=== PATIENT | female | born 1940 | race Caucasian/White ===

== ENCOUNTER 2016-08-19 05:32 | Outpatient (CLI) | payer MEDICARE, MEDICAID ==
[~2016-08-19] VITALS: Ht 157.5 cm; Wt 73.0 kg
[~2016-08-19 05:32] MED LIST: ASCO500T20 PO; CALC-694 PO; CPR500T PO; ESTR0.5T PO; GEMF600T3 PO; METR500T PO; OMEG-35 PO; ONDN4T PO; PARO40TA2 PO; SIMV40TA4 PO
[2016-08-19] MEDS ORDERED: LISI10TA2 PO (12:18)
[2016-08-19] MEDS ORDERED: HYDR25TA4 PO (12:18)
[2016-08-19] MEDS ORDERED: LORA10TA7 PO (12:19)
== END 2016-08-19 12:46 ==
LOC: PREOP 05:32
PROVIDERS: ATTEND Urology
DX: Z01.818 Encounter for other preprocedural examination (principal); N39.46 Mixed incontinence; N32.81 Overactive bladder; N36.42 Intrinsic sphincter deficiency (ISD)

== ENCOUNTER → 2016-09-05 | Outpatient (CLI) | payer MEDICARE, MEDICAID ==
[~2016-09-05] MED LIST changes: +HYDR25TA4 PO; +LISI10TA2 PO; +LORA10TA7 PO; +NITR-65 PO; +PHEN-640 PO
== END ==
LOC: PREOP 05:33
PROVIDERS: ATTEND Urology
DX: Z01.818 Encounter for other preprocedural examination (principal); N39.46 Mixed incontinence; N32.81 Overactive bladder; N36.42 Intrinsic sphincter deficiency (ISD)

== ENCOUNTER 2016-09-10 05:58 | Day surgery (SDC) | payer MEDICARE, MEDICAID ==
[~2016-09-10] VITALS: Ht 157.5 cm; Wt 73.0 kg
[~2016-09-10 05:58] MED LIST changes: -NITR-65 PO; -PHEN-640 PO
[2016-09-10] MEDS ORDERED: cefTRIAXone 1 GM (ROCEPHIN) VIAL ONE (06:17)
[2016-09-10] MEDS ORDERED: NS (IVPB) 50 ML ONE (06:18)
[2016-09-10 06:36] VITALS: BP 138/75
[2016-09-10] MEDS ORDERED: proPOfol 200 MG/20 ML (DIPRIVAN) VIAL IV ONE (06:52)
[2016-09-10] MEDS ORDERED: fentaNYL INJECTION 100 MCG/2 ML AMP ONE (06:52)
[2016-09-10] MEDS ORDERED: LACTATED RINGERS 1,000 ML IV PRN (06:56)
[2016-09-10] MEDS ORDERED: cefTRIAXone 1 GM/NS 50 ML IVPB IV ONE ×2 (07:15)
--- NOTE | 2016-09-10 07:15 | Progress Note-Pre Operative ---
Pre-Operative Progress Note H&P Reviewed The H&P was reviewed, patient examined and no changes noted. Date H&P Reviewed: September 10, 2016 Time H&P Reviewed: 07:14 Pre-Operative Diagnosis: MIXED INCONTINENCE, OAB AND ISD AUDREY BEGUM MD September 10, 2016 7:15 am
--- NOTE | 2016-09-10 07:16 | Progress Note-Post Operative ---
Post-Operative Progess Note Surgeon (s)/Chicken Cleaner (s) Surgeon AUDREY BEGUM MD Chicken Cleaner: N/A Pre-Operative Diagnosis MIXED INCONTINENCE, OAB AND ISD Post-Operative Diagnosis SAME Post-Op Procedure Note Date of Procedure: September 10, 2016 Name of Procedure Performed: MACROPLASTIQUE IMPLANT Description of the Procedure: PER DICTATION Findings of the Procedure SAME Anesthesia Type GENERAL Estimated blood loss (mL): NEGLIGIBLE Specimen(s) collected/removed NONE AUDREY BEGUM MD September 10, 2016 7:16 am
--- NOTE | 2016-09-10 07:18 | Discharge Inst-Urology ---
Discharge Inst-Urology Discharge Medications New, Converted, or Re-newed RX: RX on Chart Patient Instructions/Follow Up Plan Please make appointment to been seen in office in 4weeks. Increase oral fluids for 48 hours and then as needed. Diet and Activity as tolerated. If questions or concerns contact your physician Or seek help at emergency department. AUDREY BEGUM MD September 10, 2016 7:18 am
[2016-09-10] MEDS ORDERED: ONDANSETRON 4 MG/2 ML (SDV) Z0FRAN ONE (07:42)
[2016-09-10] MEDS ORDERED: SEVOFLURANE (ULTANE) 15 ML INHAL SOLN ONE (07:42)
[2016-09-10] MEDS ORDERED: LACTATED RINGERS 500 ML IV ONE (07:42)
[2016-09-10] MEDS ORDERED: ONDANSETRON 4 MG/2 ML (SDV) Z0FRAN IVP PRN (08:00)
[2016-09-10] MEDS ORDERED: morphine INJ 10 MG/ML 1ML (SYR OR VIAL) IVP PRN (08:00)
[2016-09-10 08:35] VITALS: BP 121/65
[2016-09-10] MEDS ORDERED: NITR-65 PO (08:41)
[2016-09-10] MEDS ORDERED: PHEN-640 PO (08:41)
--- NOTE | 2016-09-10 09:00 | OPERATIVE REPORT ---
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 OPERATION PERFORMED: Macroplastique implant. SURGEON: Ej Proctor MD ANESTHESIA: General. COMPLICATIONS: None. PROCEDURE: Under satisfactory general anesthesia, the patient in lithotomy position, genitalia were prepped and draped in the usual sterile fashion. Hysteroscope was introduced in the bladder and the Macroplastique implant was injected using the described technique and full syringe at the 6 o'clock position and a half of a syringe at each 2 and 10 o'clock positions over the mid urethra. There was excellent coaptation of the mid urethra and a negative manual Valsalva maneuver. I reinserted the cystoscope and emptied the bladder. There was no bleeding. The patient tolerated the procedure and anesthesia well and was sent to recovery room in stable condition. Job ID: [id number] DocumentID: [id number] Dictated Date: 09/10/2016 07:44:27 Camera Maker Date: 09/10/2016 09:00:37 Dictated By: EJ PROCTOR MD [facility]
[2016-09-10 09:05] VITALS: BP 141/71
[2016-09-10 09:35] VITALS: BP 123/72
== END 2016-09-10 09:35 | disposition home or self-care (01) ==
LOC: SDC 05:58
PROVIDERS: ATTEND Urology
DX: N39.46 Mixed incontinence (principal); N32.81 Overactive bladder; E78.5 Hyperlipidemia, unspecified; F32.9 Major depressive disorder, single episode, unspecified; I10 Essential (primary) hypertension; Z79.899 Other long term (current) drug therapy
CPT/HCPCS: 87081

== ENCOUNTER 2019-11-14 05:39 | Outpatient (RCR) | payer MEDICARE, MEDICAID ==
[~2019-11-14] VITALS: Ht 160 cm; Wt 76.4 kg
[~2019-11-14 05:39] MED LIST changes: +NITR-65 PO; +PHEN-640 PO
[2019-11-14] MEDS ORDERED: MV-M1TAB57 PO (11:27)
[2019-11-14] MEDS ORDERED: OMEG100032 PO (11:27)
[2019-11-14] MEDS ORDERED: OXYB10TA29 PO (11:27)
[2019-11-14] MEDS ORDERED: EMPA10TA PO (11:27)
[2019-11-14] MEDS ORDERED: AMLO5TAB9 PO (11:27)
[2019-11-14] MEDS ORDERED: PARO40TA3 PO (11:27)
[2019-11-14] MEDS ORDERED: CALC-902 PO (11:27)
[2019-11-14] MEDS ORDERED: DONE5TAB30 PO (11:27)
[2019-11-14] MEDS ORDERED: PSYL0.5244 PO (11:27)
[2019-11-14] MEDS ORDERED: SIMV40TA25 PO (11:27)
[2019-11-14] MEDS ORDERED: GEMF600T8 PO (11:27)
[2019-11-14] MEDS ORDERED: ASCO500T7 PO (11:27)
[2019-11-14] MEDS ORDERED: CHOL10002 PO (11:27)
[2019-11-14] MEDS ORDERED: VITA200C60 PO (11:27)
== END 2019-11-14 11:28 | disposition home or self-care (01) ==
LOC: PREOP 05:39
PROVIDERS: ATTEND Urology
DX: Z01.812 Encounter for preprocedural laboratory examination (principal); Z20.828 Contact with and (suspected) exposure to other viral communicable diseases
CPT/HCPCS: 87635

== ENCOUNTER 2019-11-16 06:30 | Day surgery (SDC) | payer MEDICARE, MEDICAID ==
[2019-11-16] VITALS (10 sets, daily range): BP systolic 112–166; BP diastolic 69–91
[~2019-11-16] VITALS: Ht 160 cm; Wt 76.4 kg
[~2019-11-16 06:30] MED LIST changes: +AMLO5TAB9 PO; +ASCO500T7 PO; +CALC-902 PO; +CHOL10002 PO; +DONE5TAB30 PO; +EMPA10TA PO; +GEMF600T8 PO; +MV-M1TAB57 PO; +OMEG100032 PO; +OXYB10TA29 PO; +PARO40TA3 PO; +PSYL0.5244 PO; +SIMV40TA25 PO; +VITA200C60 PO
--- OUTSIDE RECORDS SUMMARY | 2019-11-16 06:34 | XMS REPORT ---
Author Author Lashell GARCIA Organization [facility] Address Unknown Care Team Providers Care Manager Of Information Name Role Phone JOSE NOHEMI Unavailable PROBLEMS Type Condition ICD9-CM Code [id number] Code Onset Dates Condition S tatus SNOMED Code Problem Dental examination Z01.20 Active 1 67652248 Problem Encounter for dental examination Z01.20 Active [id number] ALLERGIES Substance Reaction Event Type Date Status Sulfamethoxazole Unknown Drug Allergy Jun, Active Codeine Sulfate Unknown Drug Allergy Jun, Active SOCIAL HISTORY Never Assessed PLAN OF CARE Activity Details Follow Up prn Reason:hygeine VITAL SIGNS Blood pressure systolic 121 mmHg 2016-07-02 Blood pressure diastolic 72 mmHg 2016-07-02 MEDICATIONS Medication Instructions Dosage Frequency Start Date End Date Duration S tatus Gemfibrozil Active Clindamycin HCl 150 MG Orally every 6 hrs 2 capsules 6h 1 M , 2016 7 days Active Paroxetine HCl Active Hydrochlorothiazide Acti ve Lisinopril Active Simvastatin Active RESULTS No Results PROCEDURES Procedure Date Ordered Result Body Site LTD ORAL EVALUATION - PROBLEM FOCUS Jul 02, 2016 INTRAORL-PERIAPICAL 1 FILM [id number] Jul 02, 2016 PANORAMIC FILM SEE ALSO CODE [id number] Jul 02, 2016 BITEWING - SINGLE FILM Jul 02, 2016 IMMUNIZATIONS No Known Immunizations MEDICAL (GENERAL) HISTORY Type Description Date Medical History HBP
--- OUTSIDE RECORDS SUMMARY | 2019-11-16 06:35 | XMS REPORT | Continuity of Care Document ---
Demographics Preferred Language Unknown Marital Status Unknown Mosque Affiliation Unknown Race Unknown Ethnic Group Unknown Author Organization Unknown Address Unknown Phone Unavailable Allergies Active Description Code Type Severity Reaction Onset Reported/Identified Relationship to Patient Clinical Status Yes CODEINE PHOSPHATE (BULK) CODEINE PHOSPHATE (B UNKNOWN Yes SULFACETAMIDE SODIUM (ACNE) SULFACETAMIDE SODIUM UNKNOWN Yes CODEINE PHOSPHATE (BULK) UNKNOWN UNKNOWN Yes SULFACETAMIDE SODIUM (ACNE) UNKNOWN OTHER Yes SULFACETAMIDE SODIUM (ACNE) UNKNOWN UNKNOWN Yes codeine [id number] Drug Allergy Moderate CONFUSION 08/19/2016 Yes Sulfa (Sulfonamide Antibiotics) [id number] Drug Allergy Moderate CONFUSION 08/19/[id number] soni Allergy Unknown N/A 11/14/2019 Yes Penicillins [id number] Drug Aller gy Unknown Rash 11/14/2019 Medications Medication Packaging Start Date St op Date Route Dosage Sig NORMAL SALINE 1000CC IV BAG INJ 0.9 % (NS 1000CC IV BAG) ml 08/30/2016 09/14/2016 CONTINUOUSEVERY 0 Hour IPRATROPIUM/ALBUTEROL INH SO LN (DUO-NEB INH SOLN) MLS 08/30/2016 08/30/2016 ONCE&1036 NORMAL SALINE 50CC IV BAG IN J (NS 50CC MINI-BAG) ml 05/19/2017 05/19/2017 ONCE&1120 INDOMETHACIN CAP 25 MG (INDOCIN) Dose(s) 05/19/2017 05/26/2017 BID&0800,2000 PAROXETINE TAB 20 MG (PAXIL) Dose(s) 05/20/2017 05/22/2017 Daily&0900 ALBUTEROL SVN 2.5MG/3CC LIQ 2.5 MG (PROVENTIL CRISTIAN 2.5MG/3CC) MG 05/20/2017 05/30/2017 PRN Q4H ACETAMINOPHEN ORAL TABLET 325mg(Tylenol) MG 05/20/2017 05/27/2017 PRN Q6H LEVOFLOXACIN PREMIX IV BAG I NJ 500 MG/100CC (LEVAQUIN IV PREMIX 100CC BAG) MG 05/20/2017 05/26/19 18 Daily&15 00 ONDANSETRON VIAL INJ 4 MG/2CC (ZOFRAN 2CC VIAL) MG 05/20/2017 05/27/2017 PRN Q4H IBUPROFEN TAB 800 MG (MOTRIN) MG 05/20/2017 05/27/2017 PRN Q8H SIMVASTATIN TAB 40 MG (ZOCOR) MG 05/20/2017 06/02/2017 QPM&2000 GEMFIBROZIL TAB 600 MG (LOPID) MG 05/20/2017 05/27/2017 BID&0800,2000 DIPHENHYDRAMINE CAP 25 MG (BENADRYL) MG 05/20/2017 05/27/2017 PRN QHS LISINOPRIL TAB 10 MG (ZESTRIL) MG 05/21/2017 06/03/2017 Daily&0900 PAROXETINE TAB 20 MG (PAXIL) MG 05/21/2017 06/19/2017 Daily&0900 MILK OF SHANICE ESPINOQ ml 05/21/2017 05/31/2017 PRN Daily NORMAL SALINE 1000CC IV BAG INJ 0.9 % (NS 1000CC IV BAG) ml 05/21/2017 06/05/2017 CONTINUOUSEVERY 0 Hour LEVOFLOXACIN TAB 500 MG (LEVAQUIN) MG 05/22/2017 05/28/2017 Daily&0900 KETOROLAC VIAL INJ 30 MG/CC (TORADOL VIAL) MG 09/04/2017 09/04/2017 ONCE&0948 KETOROLAC VIAL INJ 30 MG/CC (TORADOL VIAL) MG 08/01/2019 08/01/2019 ONCE&2033 ORPHENADRINE INJ 60 MG/2CC (NORFLEX) MG 08/01/2019 08/01/2019 ONCE&2033 PHENAZOPYRIDINE TAB 100 MG (PYRIDIUM) MG 08/01/2019 08/01/2019 ONCE&2036 MACROBID CAP 100 MG (NITROFURANTOIN-BID CA P) MG 08/01/2019 08/01/2019 ONCE&2037 Problems Date Dx Coded Attending Type Code Diagnosis Diagnosed By 06/16/2012 Ot 599.0 URIN TRACT INFECTION NOS 06/16/2012 Ot 780.60 FEV ER, UNSPECIFIED 08/19/2016 AUDREY BEGUM MD Ot N32.8 1 OVERACTIVE BLADDER 08/19/2016 AUDREY BEGUM MD Ot 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) 08/19/2016 AUDREY BEGUM MD Ot 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 08/19/2016 AUDREY BEGUM MD Ot Z01.8 18 ENCOUNTER FOR OTHER PREPROCEDURAL EXAMIN 08/30/2016 Beth Barragan W 274.00 GOUTY ARTHROPATHY, UNSPECIFIED 08/30/2016 Brokob, Beht W 276.51 DEHYDRATION 08/30/2016 Brokob, Beth W 382.9 08/30/2016 Brokob, Beth W 461.9 ACUTE SINUSITIS, UNSPECIFIED 08/30/2016 Brokob, Beth A 466.0 08/30/2016 Brokob, Beth W 593.9 UNSPECIFIED DISORDER OF KIDNEY AND URETER 08/30/2016 BromoniebJoshuaya W E86.0 DEHYDRATION 08/30/2016 Brokob, Beth W H66.92 OTITIS MEDIA, UNSPECIFIED, LEFT EAR 08/30/2016 BienvenidobJoshuaya W J01.90 ACUTE SINUSITIS, UNSPECIFIED 08/30/2016 BrokobJoshuaya A J20.9 ACUTE BRONCHITIS, UNSPECIFIED 08/30/2016 BrokobJoshuaya W 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, LEFT ANKLE AND FOOT 08/30/2016 Joshua Barraganya W N28.9 DISORDER OF KIDNEY AND URETER, UNSPECIFIED 09/08/2016 AUDREY BEGUM MD Ot N32.8 1 OVERACTIVE BLADDER 09/08/2016 AUDREY BEGUM MD Ot 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) 09/08/2016 AUDREY BEGUM MD Ot 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 09/08/2016 AUDREY BEGUM MD Ot Z01.8 18 ENCOUNTER FOR OTHER PREPROCEDURAL EXAMIN 09/09/2016 AUDREY BEGUM MD Ot N32.8 1 OVERACTIVE BLADDER 09/09/2016 AUDREY BEGUM MD Ot 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) 09/09/2016 AUDREY BEGUM MD Ot 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 09/09/2016 AUDREY BEGUM MD Ot Z01.8 18 ENCOUNTER FOR OTHER PREPROCEDURAL EXAMIN 09/09/2016 AUDREY BEGUM MD Ot N32.8 1 OVERACTIVE BLADDER 09/09/2016 AUDREY BEGUM MD Ot 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) 09/09/2016 AUDREY BEGUM MD Ot 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 09/09/2016 AUDREY BEGUM MD Ot Z01.8 18 ENCOUNTER FOR OTHER PREPROCEDURAL EXAMIN 09/09/2016 AUDREY BEGUM MD Ot N32.8 1 OVERACTIVE BLADDER 09/09/2016 AUDREY BEGUM MD Ot 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) 09/09/2016 AUDREY BEGUM MD Ot 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 09/09/2016 AUDREY BEGUM MD Ot Z01.8 18 ENCOUNTER FOR OTHER PREPROCEDURAL EXAMIN 09/10/2016 AUDREY BEGUM MD Ot E78.5 HYPERLIPIDEMIA, UNSPECIFIED 09/10/2016 AUDREY BEGUM MD Ot F32.9 MAJOR DEPRESSIVE DISORDER, SINGLE EPISOD 09/10/2016 AUDREY BEGUM MD Ot I10 ESSENTIAL (PRIMARY) HYPERTENSION 09/10/2016 AUDREY BEGUM MD Ot N32.8 1 OVERACTIVE BLADDER 09/10/2016 AUDREY BEGUM MD Ot 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 09/10/2016 AUDREY BEGUM MD Ot Z79.8 99 OTHER COLUMN PRECASTER (CURRENT) DRUG THERAPY 09/11/2016 AUDREY BEGUM MD Ot E78.5 HYPERLIPIDEMIA, UNSPECIFIED 09/11/2016 AUDREY BEGUM MD Ot F32.9 MAJOR DEPRESSIVE DISORDER, SINGLE EPISOD 09/11/2016 AUDREY BEGUM MD Ot I10 ESSENTIAL (PRIMARY) HYPERTENSION 09/11/2016 AUDREY BEGUM MD Ot N32.8 1 OVERACTIVE BLADDER 09/11/2016 AUDREY BEGUM MD Ot 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 09/11/2016 AUDREY BEGUM MD Ot Z79.8 99 OTHER COLUMN PRECASTER (CURRENT) DRUG THERAPY 09/16/2016 AUDREY BEGUM MD Ot N32.8 1 OVERACTIVE BLADDER 09/16/2016 AUDREY BEGUM MD Ot 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) 09/16/2016 AUDREY BEGUM MD Ot 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 09/16/2016 AUDREY BEGUM MD Ot Z01.8 18 ENCOUNTER FOR OTHER PREPROCEDURAL EXAMIN 09/16/2016 AUDREY BEGUM MD Ot N32.8 1 OVERACTIVE BLADDER 09/16/2016 AUDREY BEGUM MD Ot 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) 09/16/2016 AUDREY BEGUM MD Ot 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 09/16/2016 AUDREY BEGUM MD Ot Z01.8 18 ENCOUNTER FOR OTHER PREPROCEDURAL EXAMIN 09/17/2016 AUDREY BEGUM MD Ot E78.5 HYPERLIPIDEMIA, UNSPECIFIED 09/17/2016 AUDREY BEGUM MD Ot F32.9 MAJOR DEPRESSIVE DISORDER, SINGLE EPISOD 09/17/2016 AUDREY BEGUM MD Ot I10 ESSENTIAL (PRIMARY) HYPERTENSION 09/17/2016 AUDREY BEGUM MD Ot N32.8 1 OVERACTIVE BLADDER 09/17/2016 AUDREY BEGUM MD Ot 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 09/17/2016 AUDREY BEGUM MD Ot Z79.8 99 OTHER COLUMN PRECASTER (CURRENT) DRUG THERAPY 02/06/2017 W 259.9 UNSP ECIFIED ENDOCRINE DISORDER 02/06/2017 W 599.0 URIN JENNIFER TRACT INFECTION, SITE NOT SPECIFIED 02/06/2017 W 780.8 GENE RALIZED HYPERHIDROSIS 02/06/2017 W P39.3 NEON ATAL URINARY TRACT INFECTION 02/06/2017 W R61 GENERA LIZED HYPERHIDROSIS 02/06/2017 W T38.4X1A P OISONING BY ORAL CONTRACEPTIVES, ACCIDENTAL (UNINTENTIONAL), INITIAL ENCOUNTER 03/12/2017 Ariel Wong W 259.9 UNSPECIFIED ENDOCRINE DISORDER 03/12/2017 Ariel Wong W 780.8 GENERALIZED HYPERHIDROSIS 03/12/2017 Ariel Wong W R61 GENERALIZED HYPERHIDROSIS 03/12/2017 Ariel Wong W T38.4X1A POISONING BY ORAL CONTRACEPTIVES, ACCIDENTAL (UNINTENTIONAL), INITIAL ENCOUNTER 03/12/2017 Ariel Wong W 259.9 UNSPECIFIED ENDOCRINE DISORDER 03/12/2017 Marvin Ariel W 780.8 GENERALIZED HYPERHIDROSIS 03/12/2017 Marvin Ariel W R61 GENERALIZED HYPERHIDROSIS 03/12/2017 Marvin Ariel W T38.4X1A POISONING BY ORAL CONTRACEPTIVES, ACCIDENTAL (UNINTENTIONAL), INITIAL ENCOUNTER 03/26/2017 Ariel Wong W 599.0 URINARY TRACT INFECTION, SITE NOT SPECIFIED 03/26/2017 Marvin Ariel W P39.3 URINARY TRACT INFECTION 03/26/2017 Ariel Wong W 259.9 UNSPECIFIED ENDOCRINE DISORDER 03/26/2017 Ariel Wong W 599.0 URINARY TRACT INFECTION, SITE NOT SPECIFIED 03/26/2017 Ariel Wong W 780.8 GENERALIZED HYPERHIDROSIS 03/26/2017 Ariel Wong W P39.3 URINARY TRACT INFECTION 03/26/2017 Marvin Ariel W R61 GENERALIZED HYPERHIDROSIS 03/26/2017 Marvin Ariel Vidal T38.4X1A POISONING BY ORAL CONTRACEPTIVES, ACCIDENTAL (UNINTENTIONAL), INITIAL ENCOUNTER 03/26/2017 Ariel Wong W 259.9 UNSPECIFIED ENDOCRINE DISORDER 03/26/2017 Ariel Wong W 599.0 URINARY TRACT INFECTION, SITE NOT SPECIFIED 03/26/2017 Ariel Wong W 780.8 GENERALIZED HYPERHIDROSIS 03/26/2017 Ariel Wong P39.3 URINARY TRACT INFECTION 03/26/2017 Marvin Ariel W R61 GENERALIZED HYPERHIDROSIS 03/26/2017 Marvin Ariel Vidal T38.4X1A POISONING BY ORAL CONTRACEPTIVES, ACCIDENTAL (UNINTENTIONAL), INITIAL ENCOUNTER 05/19/2017 Ariel Wong W 599.0 URINARY TRACT INFECTION, SITE NOT SPECIFIED 05/19/2017 Ariel Wong 780.60 FEVER, UNSPECIFIED 05/19/2017 Ariel Wong W N39.0 URINARY TRACT INFECTION, SITE NOT SPECIFIED 05/19/2017 Ariel Wong R50.9 FEVER, UNSPECIFIED 05/19/2017 Ariel Wong W 599.0 URINARY TRACT INFECTION, SITE NOT SPECIFIED 05/19/2017 Ariel Wong 780.60 FEVER, UNSPECIFIED 05/19/2017 Ariel Wong N39.0 URINARY TRACT INFECTION, SITE NOT SPECIFIED 05/19/2017 Ariel Wong R50.9 FEVER, UNSPECIFIED 05/19/2017 Ariel Wong 041.49 OTHER AND UNSPECIFIED ESCHERICHIA COLI [E. COLI] INFECTION IN CONDITIONS CLASSIFIED ELSEWHERE AND OF UNSPECIFIED SITE 05/19/2017 Ariel Wong A 599.0 URINARY TRACT INFECTION, SITE NOT SPECIFIED 05/19/2017 Ariel Wong 780.60 FEVER, UNSPECIFIED 05/19/2017 Ariel Wong B96.20 UNSP ESCHERICHIA COLI THE CAUSE OF DISEASES CLASSD ELSWHR 05/19/2017 Ariel Wong A N39.0 URINARY TRACT INFECTION, SITE NOT SPECIFIED 05/19/2017 Ariel Wong R50.9 FEVER, UNSPECIFIED 05/19/2017 W 599.0 URIN JENNIFER TRACT INFECTION, SITE NOT SPECIFIED 05/19/2017 W 780.60 FEV ER, UNSPECIFIED 05/19/2017 W N39.0 URIN JENNIFER TRACT INFECTION, SITE NOT SPECIFIED 05/19/2017 W R50.9 FEVE R, UNSPECIFIED 05/22/2017 Ariel Wong 272.4 OTHER AND UNSPECIFIED HYPERLIPIDEMIA 05/22/2017 Ariel Wong 401.0 MALIGNANT ESSENTIAL HYPERTENSION 05/22/2017 Ariel Wong 493.90 ASTHMA, UNSPECIFIED 05/22/2017 Ariel Wong 599.0 URINARY TRACT INFECTION, SITE NOT SPECIFIED 05/22/2017 Ariel Wong E78.5 HYPERLIPIDEMIA, UNSPECIFIED 05/22/2017 Ariel Wong I10 ESSENTIAL (PRIMARY) HYPERTENSION 05/22/2017 Ariel Wong J45.909 UNSPECIFIED ASTHMA, UNCOMPLICATED 05/22/2017 Ariel Wong N39.0 URINARY TRACT INFECTION, SITE NOT SPECIFIED 05/28/2017 W 599.0 URIN JENNIFER TRACT INFECTION, SITE NOT SPECIFIED 05/28/2017 W N39.0 URIN JENNIFER TRACT INFECTION, SITE NOT SPECIFIED 06/01/2017 Ariel Wong 599.0 URINARY TRACT INFECTION, SITE NOT SPECIFIED 06/01/2017 Ariel Wong N39.0 URINARY TRACT INFECTION, SITE NOT SPECIFIED 06/01/2017 Ariel Wong 599.0 URINARY TRACT INFECTION, SITE NOT SPECIFIED 06/01/2017 Ariel Wong N39.0 URINARY TRACT INFECTION, SITE NOT SPECIFIED 06/03/2017 Ariel Wong 788.1 DYSURIA 06/03/2017 Ariel Wong R30.0 DYSURIA 06/03/2017 W 788.1 DYSURIA 06/03/2017 W R30.0 DYSURIA 06/03/2017 Ariel Wong 788.1 DYSURIA 06/03/2017 Ariel Wong R30.0 DYSURIA 09/04/2017 Jose Guadalupe Goldman A 274.00 GOUTY ARTHROPATHY, UNSPECIFIED 09/04/2017 Jose Guadalupe Goldman 585.9 CHRONIC KIDNEY DISEASE, UNSPECIFIED 09/04/2017 Jose Guadalupe Goldman 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, LEFT ANKLE AND FOOT 09/04/2017 Jose Guadalupe Goldman N18.9 CHRONIC KIDNEY DISEASE, UNSPECIFIED 02/02/2018 Ariel Wong 401.9 UNSPECIFIED ESSENTIAL HYPERTENSION 02/02/2018 Ariel Wong I10 ESSENTIAL (PRIMARY) HYPERTENSION 02/02/2018 W 401.9 UNSP ECIFIED ESSENTIAL HYPERTENSION 02/02/2018 W I10 ESSENT IAL (PRIMARY) HYPERTENSION 02/02/2018 Ariel Wong 401.9 UNSPECIFIED ESSENTIAL HYPERTENSION 02/02/2018 Ariel Wong I10 ESSENTIAL (PRIMARY) HYPERTENSION 04/29/2018 W 250.00 MELANI BETES MELLITUS WITHOUT MENTION OF COMPLICATION, TYPE II OR UNSPECIFIED TYPE, NOT STATED UNCONTROLLED 04/29/2018 W E11.9 TYPE 2 DIABETES MELLITUS WITHOUT COMPLICATIONS 07/12/2018 Esperanza Dean W 599.0 URINARY TRACT INFECTION, SITE NOT SPECIFIED 07/12/2018 Esperanza Dean W N39.0 URINARY TRACT INFECTION, SITE NOT SPECIFIED 07/12/2018 W 599.0 URIN JENNIFER TRACT INFECTION, SITE NOT SPECIFIED 07/12/2018 W N39.0 URIN JENNIFER TRACT INFECTION, SITE NOT SPECIFIED 07/12/2018 Esperanza Dean W 599.0 URINARY TRACT INFECTION, SITE NOT SPECIFIED 07/12/2018 Esperanza Dean N39.0 URINARY TRACT INFECTION, SITE NOT SPECIFIED 08/03/2018 Ariel Wong 599.0 URINARY TRACT INFECTION, SITE NOT SPECIFIED 08/03/2018 Ariel Wong N39.0 URINARY TRACT INFECTION, SITE NOT SPECIFIED 08/03/2018 W 599.0 URIN JENNIFER TRACT INFECTION, SITE NOT SPECIFIED 08/03/2018 W N39.0 URIN JENNIFER TRACT INFECTION, SITE NOT SPECIFIED 08/03/2018 Ariel Wong W 599.0 URINARY TRACT INFECTION, SITE NOT SPECIFIED 08/03/2018 Ariel Wong N39.0 URINARY TRACT INFECTION, SITE NOT SPECIFIED 09/15/2018 Lillian Galvan W 338.11 ACUTE PAIN DUE TO TRAUMA 09/15/2018 Lillian Galvan W 724.2 LUMBAGO 09/15/2018SeptemberGalvanLillian hood W G89.11 ACUTE PAIN DUE TO TRAUMA 09/15/2018 Lillian Galvan W M54.5 LOW BACK PAIN 04/02/2019 Jose Guadalupe Goldman B96.20 UNSP ESCHERICHIA COLI THE CAUSE OF DISEASES CLASSD ELSWHR 04/02/2019 Jose Guadalupe Goldman E78.5 HYPERLIPIDEMIA, UNSPECIFIED 04/02/2019 Jose Guadalupe Goldman E86.0 DEHYDRATION 04/02/2019 Jose Guadalupe Goldman G89.11 ACUTE PAIN DUE TO TRAUMA 04/02/2019 Jose Guadalupe Goldman H66.92 OTITIS MEDIA, UNSPECIFIED, LEFT EAR 04/02/2019 Jose Guadalupe Goldman I10 ESSENTIAL (PRIMARY) HYPERTENSION 04/02/2019 Jose Guadalupe Goldman J01.90 ACUTE SINUSITIS, UNSPECIFIED 04/02/2019 Jose Guadalupe Goldman J20.9 ACUTE BRONCHITIS, UNSPECIFIED 04/02/2019 Jose Guadalupe Goldman J45.909 UNSPECIFIED ASTHMA, UNCOMPLICATED 04/02/2019 Jose Guadalupe Goldman 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, LEFT ANKLE AND FOOT 04/02/2019 Jose Guadalupe Goldman M54.5 LOW BACK PAIN 04/02/2019 Jose Guadalupe Goldman N18.9 CHRONIC KIDNEY DISEASE, UNSPECIFIED 04/02/2019 Jose Guadalupe Goldman N39.0 URINARY TRACT INFECTION, SITE NOT SPECIFIED 04/02/2019 Jose Guadalupe Goldman P39.3 URINARY TRACT INFECTION 04/02/2019 Jose Guadalupe Goldman R30.0 DYSURIA 04/02/2019 Jose Guadalupe Goldman R61 GENERALIZED HYPERHIDROSIS 04/02/2019 Jose Guadalupe Goldman T38.4X1A POISONING BY ORAL CONTRACEPTIVES, ACCIDENTAL, INIT 08/01/2019 MAHIN HINDS B96.2 0 UNSP ESCHERICHIA COLI THE CAUSE OF DISEASES CLASSD ELSWHR 08/01/2019 MAHIN HINDS E78.5 HYPERLIPIDEMIA, UNSPECIFIED 08/01/2019 MAHIN HINDS E86.0 DEHYDRATION 08/01/2019 MAHIN HINDS G89.1 1 ACUTE PAIN DUE TO TRAUMA 08/01/2019 NELDAMARIA AMAHIN HOOD H66.9 2 OTITIS MEDIA, UNSPECIFIED, LEFT EAR 08/01/2019 NELDAARTUROMAHIN W I10 ESSENTIAL (PRIMARY) HYPERTENSION 08/01/2019 NELDAARTUROMAHIN J01.9 0 ACUTE SINUSITIS, UNSPECIFIED 08/01/2019 NELDAARTUROMAHIN J20.9 ACUTE BRONCHITIS, UNSPECIFIED 08/01/2019 NELDAARTUROMAHIN J45.9 09 UNSPECIFIED ASTHMA, UNCOMPLICATED 08/01/2019 NELDAMARIA AMAHIN HOOD M10.0 72 IDIOPATHIC GOUT, LEFT ANKLE AND FOOT 08/01/2019 KRISHNAROBBINARTUROMAHIN M54.5 LOW BACK PAIN 08/01/2019 KRISHNAROBBINARTUROMAHIN N18.9 CHRONIC KIDNEY DISEASE, UNSPECIFIED 08/01/2019 MAHIN HINDS N39.0 URINARY TRACT INFECTION, SITE NOT SPECIFIED 08/01/2019 MAHIN HINDS P39.3 URINARY TRACT INFECTION 08/01/2019 NELDAMARIA AMAHIN HOOD R30.0 DYSURIA 08/01/2019 MAHIN HINDS R61 GENERALIZED HYPERHIDROSIS 08/01/2019 NELDAMARIA AMAHIN HOOD T38.4 X1A POISONING BY ORAL CONTRACEPTIVES, ACCIDENTAL, INIT Procedures There is no data. Results Test Result Range Sed Rate - 04/25/16 15:15 Sed Rate 40 mm/hr 9-15 Lipid Panel - 07/29/16 08:51 C/HDL 2.9 3.7-6.7 Cholesterol 182 mg/dL 100-240 HDL 63 mg/dL 30-85 LDL-Calculated 102 mg/dL 0-100 Trig 86 mg/dL 35-160 VLDL 17 mg/dL 0-42 Uric Acid - 08/28/16 15:15 Uric Acid 6.8 mg/dL 2.6-7.2 IFOBT Occult Blood - 08/29/16 11:01 IFOBT Occult Blood NEGATIVE Negative BNP - 08/30/16 10:34 BNP 37.00 pg/ml 0.00-100.00 Urinalysis - 08/30/16 12:15 Icotest N/A Negative Urine Volume Urine Volume Sufficient (10mL) Urine Yeast No Yeast present Urine-Appearance Clear Clear Urine-Bacteria Negative Urine-Bilirubin Negative Negative Urine-Blood Negative Negative Urine-Color Yellow Colorless-Lt. [place] ow Urine-Glucose Negative Negative Urine-Ketones Negative Negative Urine-Leukocytes Negative Negative Urine-Nitrite Negative Negative Urine-Other Urine Saved if Culture Need ed (48hrs from time of collection) Urine-pH 5.5 5-8.5 Urine-Protein Negative Negative Urine-RBC Negative Urine-Specific [place] <=1.005 1.000-1 .030 Urine-WBC Negative Urobilinogen 0.2 E.U./dL 0.2-1.0 Methicillin resistant Staphylococcus aur eus (MRSA) screening culture - 09/10/16 06:05 Methicillin resistant Staphylococcus aureus (MRSA) scr eening culture NEG NRG Urine Culture - 02/06/17 18:00 PRELIM CULTURE RESULTS >100,000 Gram Negativ e - RACHEL / ID to Follow MEDIA PLATED Setup at 18:10 on 02/06/2017 CULTURE SOURCE voided urine/clinic collection Sensi - 02/06/17 18:00 FINAL CULTURE RESULTS Klebsiella pneumoniae ([place] te 1) Ampicillin/Sulbactam <=8/4 Ampicillin >16 Amoxicillin/K Clavulanate <=8/4 Ceftriaxone <=8 Ciprofloxacin <=1 Nitrofurantoin <=32 Gentamicin <=4 Levofloxacin <=2 Trimethoprim/ Sulfamethoxazole <=2/38 Tetracycline <=4 Amikacin <=16 Aztreonam <=8 Ceftazidime <=1 Ceftazidime/K Clavulanate <=0.25 Cephalothin <=8 Cefotaxime <=2 Cefotaxime/K Clavulanate <=0.5 Cefoxitin <=8 Cefazolin <=8 Cefepime <=8 Cefuroxime <=4 Ertapenem <=1 Imipenem <=4 Meropenem <=4 Piperacillin/Tazobactam <=16 Piperacillin <=16 Tigecycline <=2 Tobramycin <=4 Comprehensive Metabolic Panel - 03/12/17 08:49 Albumin 4.5 g/dL 3.6-5.1 ALP 92 U/L 35-130 ALT 12 U/L 6-45 Anion Gap 14 6-14 AST 13 U/L 2-40 BUN 27 mg/dL 5-25 Calcium 9.3 mg/dL 8.3-10.4 Chloride 109 mmol/L 95-114 CO2 21 mEq/L 22-33 Creat 1.23 mg/dL 0.50-1.50 eGFR 42 mL/min/1.73m2 >59 Globulin 2.8 g/dL 2.3-3.5 Glucose 107 mg/dL 70-110 Osmo 292 280-295 Potassium 4.6 mmol/L 3.5-5.3 Sodium 139 mmol/L 134-148 TBil 0.3 mg/dL 0.2-1.2 TP 7.3 g/dL 6.0-8.3 Comprehensive Metabolic Panel - 03/26/17 10:55 Albumin 4.4 g/dL 3.6-5.1 ALP 76 U/L 35-130 ALT 11 U/L 6-45 Anion Gap 17 6-14 AST 15 U/L 2-40 BUN 25 mg/dL 5-25 Calcium 9.4 mg/dL 8.3-10.4 Chloride 108 mmol/L 95-114 CO2 20 mEq/L 22-33 Creat 1.20 mg/dL 0.50-1.50 eGFR 44 mL/min/1.73m2 >59 Globulin 3.1 g/dL 2.3-3.5 Glucose 103 mg/dL 70-110 Osmo 293 280-295 Potassium 4.7 mmol/L 3.5-5.3 Sodium 140 mmol/L 134-148 TBil 0.4 mg/dL 0.2-1.2 TP 7.5 g/dL 6.0-8.3 CBC with Auto Diff - 05/19/17 11:34 Baso% 0.20 % 0.00-2.50 Eos 0.1 K/uL 0.0-0.7 Eos% 0.4 % 0.0-7.0 Hct 31.8 % 36.0-46.0 Hgb 10.3 g/dL 13.0-15.0 Lym 1.44 K/uL 0.60-3.40 Lym% 8.5 % 10.0-50.0 MCH 28.2 pg 27.0-31.0 MCHC 32.4 g/dL 32.0-36.0 MCV 87.1 fL 80.0-97.0 Rains% 8.7 % 0.0-12.0 MPV 10.7 fL 7.4-10.0 Trey% 82.2 % 37.0-80.0 Plt 250 K/uL 150-400 RBC 3.65 M/uL 3.60-5.00 RDW 14.3 % 11.6-14.8 WBC 16.98 K/uL 5.00-10.00 Trey 13.97 K/uL 2.00-6.90 Rains 1.5 K/uL 0.0-0.9 Baso 0.0 K/uL 0.0-0.2 Urine Culture - 05/19/17 11:34 PRELIM CULTURE RESULTS >100,000 Gram Negativ e Lactose Department Chairperson RACHEL / ID to Follow MEDIA PLATED Setup at 12:37 on 05/19/2017 CULTURE SOURCE sample from doctor's office Sensi - 05/19/17 11:34 FINAL CULTURE RESULTS Escherichia coli (Isolate 1) Ampicillin/Sulbactam 16/8 Ampicillin >16 Amoxicillin/K Clavulanate <=8/4 Ceftriaxone <=8 Ciprofloxacin <=1 Nitrofurantoin <=32 Gentamicin <=4 Levofloxacin <=2 Trimethoprim/ Sulfamethoxazole >2/38 Tetracycline >8 Amikacin <=16 Aztreonam <=8 Ceftazidime <=1 Ceftazidime/K Clavulanate <=0.25 Cephalothin 16 Cefotaxime <=2 Cefotaxime/K Clavulanate <=0.5 Cefoxitin <=8 Cefazolin <=8 Cefepime <=8 Cefuroxime <=4 Ertapenem <=1 Imipenem <=4 Meropenem <=4 Piperacillin/Tazobactam <=16 Piperacillin >64 Tigecycline <=2 Tobramycin <=4 Blood Culture - 05/20/17 14:36 PRELIM CULTURE RESULTS Blood Culture Negativ e, No Growth Day 1 FINAL CULTURE RESULTS Blood Culture Negative , No Growth Day 5 MEDIA PLATED loaded in C47 CULTURE SOURCE RFA BMP - 05/20/17 14:36 Anion Gap 17 6-14 BUN 41 mg/dL 5-25 Calcium 9.3 mg/dL 8.3-10.4 Chloride 102 mmol/L 95-114 CO2 20 mEq/L 22-33 Creat 1.99 mg/dL 0.50-1.50 eGFR 24 mL/min/1.73m2 >59 Glucose 130 mg/dL 70-110 Osmo 290 280-295 Potassium 3.7 mmol/L 3.5-5.3 Sodium 135 mmol/L 134-148 Blood Culture - 05/20/17 14:36 PRELIM CULTURE RESULTS Blood Culture Negativ e, No Growth Day 1 MEDIA PLATED loaded in C47 CULTURE SOURCE RFA Blood Culture - 05/20/17 15:00 PRELIM CULTURE RESULTS Blood Culture Negativ e, No Growth Day 1 FINAL CULTURE RESULTS Blood Culture Negative , No Growth Day 5 MEDIA PLATED Setup at 15:35 on 05/20/2017; Blood Culture Media Position B28 CULTURE SOURCE left [id number]\ Blood Culture - 05/20/17 15:00 PRELIM CULTURE RESULTS Blood Culture Negativ e, No Growth Day 1 MEDIA PLATED Setup at 15:35 on 05/20/2017; Blood Culture Media Position B28 CULTURE SOURCE left [id number]\ BMP - 05/22/17 06:20 Anion Gap 15 6-14 BUN 36 mg/dL 5-25 Calcium 8.1 mg/dL 8.3-10.4 Chloride 111 mmol/L 95-114 CO2 18 mEq/L 22-33 Creat 1.81 mg/dL 0.50-1.50 eGFR 27 mL/min/1.73m2 >59 Glucose 113 mg/dL 70-110 Osmo 296 280-295 Potassium 4.8 mmol/L 3.5-5.3 Sodium 139 mmol/L 134-148 Urine Culture - 06/01/17 08:25 PRELIM CULTURE RESULTS 50,000-100,000 Gram P ositive Mixed Reshma FINAL CULTURE RESULTS 50,000-100,000 Gram Po sitive Mixed Reshma [id number] Skin Contaminant [id number] Further Workup done MEDIA PLATED Setup at 08:40 on 06/01/2017 CULTURE SOURCE void Urine Culture - 06/03/17 18:40 PRELIM CULTURE RESULTS 50,000-100,000 Gram P ositive Mixed Reshma Probable Skin Contaminant FINAL CULTURE RESULTS No Further Workup done MEDIA PLATED Setup at 18:50 on 06/03/2017 CULTURE SOURCE [id number]\ Uric Acid - 09/04/17 09:26 Uric Acid 6.8 mg/dL 2.6-7.2 Lipid Panel - 02/02/18 08:51 C/HDL 4.2 3.7-6.7 Cholesterol 254 mg/dL 100-240 HDL 60 mg/dL 30-85 LDL-Calculated 171 mg/dL 0-100 Trig 113 mg/dL 35-160 VLDL 23 mg/dL 0-42 Urine Culture - 07/12/18 17:08 PRELIM CULTURE RESULTS >100,000 Gram Negativ e RACHEL / ID to Follow CULTURE SOURCE CC Sensi - 07/12/18 17:08 FINAL CULTURE RESULTS Proteus mirabilis (Isolate 1 ) Ampicillin/Sulbactam <=8/4 Ampicillin <=8 Amoxicillin/K Clavulanate <=8/4 Ceftriaxone <=8 Ciprofloxacin <=1 Nitrofurantoin >64 Gentamicin <=4 Levofloxacin <=2 Trimethoprim/ Sulfamethoxazole <=2/38 Tetracycline >8 Amikacin <=16 Aztreonam <=8 Ceftazidime <=1 Ceftazidime/K Clavulanate <=0.25 Cephalothin <=8 Cefotaxime <=2 Cefotaxime/K Clavulanate <=0.5 Cefoxitin <=8 Cefazolin <=8 Cefepime <=8 Cefuroxime <=4 Ertapenem <=1 Imipenem <=4 Meropenem <=4 Piperacillin/Tazobactam <=16 Piperacillin <=16 Tigecycline N/R Tobramycin <=4 Urinalysis - 08/03/18 14:47 Icotest N/A Negative Urine Volume Urine Volume Sufficient (10mL) Urine Yeast No Yeast present Urine-Appearance Slightly Cloudy Clear Urine-Bacteria 1+ Urine-Bilirubin Negative Negative Urine-Blood 1+ Negative Urine-Color Yellow Colorless-Lt. [place] ow Urine-Epithelial Cells 0-5/HPF Urine-Glucose Negative Negative Urine-Ketones Negative Negative Urine-Leukocytes 2+ Negative Urine-Nitrite Negative Negative Urine-Other Culture to follow Urine-pH 5.5 5-8.5 Urine-Protein Trace Negative Urine-RBC 2-5/HPF Urine-Specific [place] <=1.005 1.000-1 .030 Urine-WBC TNTC Urobilinogen 0.2 E.U./dL 0.2-1.0 Urine Culture - 08/03/18 14:47 PRELIM CULTURE RESULTS 50,000-100,000 Gram N egative Lactose Department Chairperson RACHEL / ID to Follow MEDIA PLATED Setup at 14:55 on 08/03/2018 CULTURE SOURCE CC Sensi - 08/03/18 14:47 FINAL CULTURE RESULTS Escherichia coli (Isolate 1) Ampicillin/Sulbactam >16/8 Ampicillin >16 Amoxicillin/K Clavulanate <=8/4 Ceftriaxone <=8 Ciprofloxacin >2 Nitrofurantoin <=32 Gentamicin <=4 Levofloxacin >4 Trimethoprim/ Sulfamethoxazole <=2/38 Tetracycline >8 Amikacin <=16 Aztreonam <=8 Ceftazidime <=1 Ceftazidime/K Clavulanate <=0.25 Cephalothin 16 Cefotaxime <=2 Cefotaxime/K Clavulanate <=0.5 Cefoxitin <=8 Cefazolin <=8 Cefepime <=8 Cefuroxime <=4 Ertapenem <=1 Imipenem <=4 Meropenem <=4 Piperacillin/Tazobactam <=16 Piperacillin >64 Tigecycline <=2 Tobramycin <=4 Urinalysis - 08/19/18 13:59 Icotest N/A Negative Urine Volume Urine Volume Sufficient (10mL) Urine-Appearance Slightly Cloudy Clear Urine-Bacteria 1+ Urine-Bilirubin Negative Negative Urine-Blood 2+ Negative Urine-Color Yellow Colorless-Lt. [place] ow Urine-Epithelial Cells 0-5/HPF Urine-Glucose Negative Negative Urine-Ketones Negative Negative Urine-Leukocytes 3+ Negative Urine-Nitrite Negative Negative Urine-Other Culture to follow Urine-pH 5.5 5-8.5 Urine-Protein 1+ Negative Urine-RBC 2-5/HPF Urine-Specific [place] 1.010 1.000-1 .030 Urine-WBC TNTC Urobilinogen 0.2 E.U./dL 0.2-1.0 Urine Culture - 08/19/18 13:59 PRELIM CULTURE RESULTS >100,000 Gram Negativ e Lactose Department Chairperson RACHEL / ID to Follow MEDIA PLATED Setup at 14:38 on 08/19/2018 CULTURE SOURCE [id number]\ Sensi - 08/19/18 13:59 FINAL CULTURE RESULTS Escherichia coli (Isolate 1) Ampicillin/Sulbactam >16/8 Ampicillin >16 Amoxicillin/K Clavulanate 16/8 Ceftriaxone <=8 Ciprofloxacin >2 Nitrofurantoin <=32 Gentamicin <=4 Levofloxacin >4 Trimethoprim/ Sulfamethoxazole <=2/38 Tetracycline >8 Amikacin <=16 Aztreonam <=8 Ceftazidime <=1 Ceftazidime/K Clavulanate <=0.25 Cephalothin >16 Cefotaxime <=2 Cefotaxime/K Clavulanate <=0.5 Cefoxitin <=8 Cefazolin >16 Cefepime <=8 Cefuroxime 8 Ertapenem <=1 Imipenem <=4 Meropenem <=4 Piperacillin/Tazobactam 64 Piperacillin >64 Tigecycline <=2 Tobramycin <=4 Urine Culture - 01/19/19 11:23 PRELIM CULTURE RESULTS >100,000 Gram Negativ e Lactose Department Chairperson RACHEL / ID to Follow MEDIA PLATED Setup at 12:19 on 01/19/2019 CULTURE SOURCE urine Sensi - 01/19/19 11:23 FINAL CULTURE RESULTS Escherichia coli (Isolate 1) Ampicillin/Sulbactam >16/8 Ampicillin >16 Amoxicillin/K Clavulanate >16/8 Ceftriaxone <=8 Ciprofloxacin >2 Nitrofurantoin <=32 Gentamicin <=4 Levofloxacin >4 Trimethoprim/ Sulfamethoxazole <=2/38 Tetracycline >8 Amikacin <=16 Aztreonam <=8 Ceftazidime <=1 Ceftazidime/K Clavulanate <=0.25 Cephalothin >16 Cefotaxime <=2 Cefotaxime/K Clavulanate <=0.5 Cefoxitin <=8 Cefazolin <=8 Cefepime <=8 Cefuroxime <=4 Ertapenem <=1 Imipenem <=4 Meropenem <=4 Piperacillin/Tazobactam 64 Piperacillin >64 Tigecycline <=2 Tobramycin <=4 Hemoglobin A1C - 04/25/19 09:36 % A1C 6.60 % 5.40-6.60 AvGlu 159 mg/dL 70-110 Urinalysis - 08/01/19 20:10 Icotest N/A Negative Urine Volume Urine Volume Sufficient (10mL) Urine-Appearance Slightly Cloudy Clear Urine-Bacteria 3+ Urine-Bilirubin Negative Negative Urine-Blood Trace-intact Negative Urine-Color Yellow Colorless-Lt. [place] ow Urine-Epithelial Cells 0-5/HPF Urine-Glucose 3+ Negative Urine-Ketones Negative Negative Urine-Leukocytes Trace Negative Urine-Nitrite Negative Negative Urine-Other Culture to follow Urine-pH 6.0 5-8.5 Urine-Protein Negative Negative Urine-RBC 0-2/HPF Urine-Specific [place] 1.015 1.000-1 .030 Urine-WBC 20-40/HPF Urobilinogen 0.2 0.2-1.0 Urine Culture - 08/01/19 20:10 PRELIM CULTURE RESULTS >100,000 Gram Negativ e Lactose Department Chairperson RACHEL / ID to Follow [id number],[id number],000 Gram Positive Mixed Reshma Probable Skin Contaminant MEDIA PLATED Setup at 20:39 on 08/01/2019 CULTURE SOURCE voided urine/er collection Sensi - 08/01/19 20:10 FINAL CULTURE RESULTS Escherichia coli (Isolate 1) Ampicillin/Sulbactam <=8/4 Ampicillin <=8 Amoxicillin/K Clavulanate <=8/4 Ceftriaxone <=8 Ciprofloxacin <=1 Nitrofurantoin <=32 Gentamicin <=4 Levofloxacin <=2 Trimethoprim/ Sulfamethoxazole <=2/38 Tetracycline <=4 Amikacin <=16 Aztreonam <=8 Ceftazidime <=1 Ceftazidime/K Clavulanate <=0.25 Cephalothin <=8 Cefotaxime <=2 Cefotaxime/K Clavulanate <=0.5 Cefoxitin <=8 Cefazolin <=8 Cefepime <=8 Cefuroxime <=4 Ertapenem <=1 Imipenem <=4 Meropenem <=4 Piperacillin/Tazobactam <=16 Piperacillin <=16 Tigecycline <=2 Tobramycin <=4 Urinalysis - 08/22/19 10:14 Icotest N/A Negative Urine Volume Urine Volume Sufficient (10mL) Urine Yeast No Yeast present Urine-Appearance Clear Clear Urine-Bacteria Trace Urine-Bilirubin Negative Negative Urine-Blood Trace-intact Negative Urine-Color Yellow Colorless-Lt. [place] ow Urine-Epithelial Cells 5-10/HPF Urine-Glucose Trace Negative Urine-Ketones Negative Negative Urine-Leukocytes Trace Negative Urine-Mucus 1+ Urine-Nitrite Negative Negative Urine-Other Urine Saved if Culture Need ed (48hrs from time of collection) Urine-pH 5.5 5-8.5 Urine-Protein Trace Negative Urine-RBC Negative Urine-Specific [place] 1.020 1.000-1 .030 Urine-WBC 0-2/HPF Urobilinogen 0.2 E.U./dL 0.2-1.0 Urine Culture - 08/22/19 10:14 PRELIM CULTURE RESULTS 10,000-20,000 Gram Po sitive Mixed Reshma [id number] Skin Contaminant FINAL CULTURE RESULTS 20,000-50,000 Gram Pos itive Mixed Reshma [id number] Skin Contaminant [id number] Further Workup done MEDIA PLATED Setup at 12:13 on 08/22/2019 CULTURE SOURCE [id number]\ Lipid Panel - 10/14/19 08:59 C/HDL 3.9 3.7-6.7 Cholesterol 220 mg/dL 100-240 HDL 57 mg/dL 30-85 LDL-Calculated 135 mg/dL 0-100 Trig 138 mg/dL 35-160 VLDL 28 mg/dL 0-42 Comprehensive Metabolic Panel - 10/14/19 08:59 Albumin 4.7 g/dL 3.6-5.1 ALP 83 U/L 35-130 ALT 27 U/L 6-45 Anion Gap 18 6-14 AST 21 U/L 2-40 BUN 33 mg/dL 5-25 Calcium 9.5 mg/dL 8.3-10.4 Chloride 101 mmol/L 95-114 CO2 23 mEq/L 22-33 Creat 1.59 mg/dL 0.50-1.50 eGFR 31 mL/min/1.73m2 >59 Globulin 3.4 g/dL 2.3-3.5 Glucose 149 mg/dL 70-110 Osmo 294 280-295 Potassium 3.8 mmol/L 3.5-5.3 Sodium 138 mmol/L 134-148 TBil 0.6 mg/dL 0.2-1.2 TP 8.1 g/dL 6.0-8.3 CBC with Auto Diff - 10/20/19 09:03 Baso% 0.60 % 0.00-2.50 Eos 0.4 K/uL 0.0-0.7 Eos% 6.3 % 0.0-7.0 Hct 40.6 % 36.0-46.0 Hgb 13.1 g/dL 13.0-15.0 Lym 1.61 K/uL 0.60-3.40 Lym% 24.8 % 10.0-50.0 MCH 28.7 pg 27.0-31.0 MCHC 32.3 g/dL 32.0-36.0 MCV 88.8 fL 80.0-97.0 Rains% 11.2 % 0.0-12.0 MPV 10.9 fL 7.4-10.0 Trey% 57.1 % 37.0-80.0 Plt 257 K/uL 150-400 RBC 4.57 M/uL 3.60-5.00 RDW 14.9 % 11.6-14.8 WBC 6.49 K/uL 5.00-10.00 Trey 3.70 K/uL 2.00-6.90 Rains 0.7 K/uL 0.0-0.9 Baso 0.0 K/uL 0.0-0.2 Coronavirus SARS-CoV-2 SO 2018 0 08:11 Coronavirus Ab [Units/volume] in Serum Negative Negative Encounters ACCT No. Visit Date/Time Discharge Status Pt. Type Provider Facility Loc./Unit Complaint [id number] 05/20/2017 14:27:00 Document Registration [id number] 10/26/2019 09:22:00 10/26/2019 23:59 :00 DIS Outpatient Ariel Wong [id number] 10/20/2019 10:11:00 10/20/2019 23:59 :00 DIS Outpatient Ariel Wong [id number] 10/20/2019 08:59:00 10/20/2019 23:59 :00 DIS Outpatient Ariel Wong [id number] 10/14/2019 08:49:00 10/14/2019 23:59 :00 DIS Outpatient Ariel Wong [id number] 10/13/2019 14:04:00 10/13/2019 23:59 :00 DIS Outpatient Ariel Wong [id number] 08/22/2019 10:09:00 08/22/2019 23:59 :00 DIS Outpatient Ariel Wong [id number] 08/01/2019 00:00:00 08/01/2019 21:35 :00 DIS Outpatient MAHIN HINDS [facility] [id number] 06/20/2019 16:04:00 06/20/2019 23:59 :00 DIS Outpatient Paoni, Ariel [id number] 04/25/2019 10:43:00 04/25/2019 23:59 :00 DIS Outpatient Paoni, Ariel [id number] 04/25/2019 09:32:00 04/25/2019 23:59 :00 DIS Outpatient Paoni, Ariel [id number] 04/02/2019 21:20:00 04/02/2019 22:38: 00 [id number] 03/07/2019 10:18:00 03/07/2019 23:59: 00 DIS Outpatient Paoni, Ariel [id number] 01/20/2019 09:22:00 01/20/2019 23:59: 00 DIS Outpatient Paoni, Ariel [id number] 01/19/2019 11:17:00 01/19/2019 23:59: 00 DIS Outpatient Paoni, Ariel [id number] 09/15/2018 09:35:00 09/15/2018 10:25: 00 DIS Outpatient Lillian Galvan [id number] 09/13/2018 13:41:00 09/13/2018 23:59: 00 DIS Outpatient Paoni, Ariel [id number] 08/19/2018 13:57:00 08/19/2018 23:59: 00 DIS Outpatient Paoni, Ariel [id number] 08/03/2018 14:45:00 08/03/2018 23:59: 00 DIS Outpatient Paoni, Ariel [id number] 07/12/2018 17:08:00 07/12/2018 23:59: 00 DIS Outpatient Esperanza Dean [id number] 02/02/2018 08:49:00 02/02/2018 23:59: 00 DIS Outpatient Paoni, Ariel [id number] 09/07/2017 13:29:00 09/07/2017 23:59: 00 DIS Outpatient Paoni, Ariel [id number] 09/04/2017 08:51:00 09/04/2017 11:28: 00 [facility] [id number] 06/03/2017 18:39:00 06/03/2017 23:59: 00 DIS Outpatient Paoni, Ariel [id number] 06/01/2017 08:21:00 06/01/2017 23:59: 00 DIS Outpatient Paoni, Areil [id number] 05/20/2017 14:27:00 05/22/2017 11:15: 00 DIS Inpatient PaoniAriel [facility] [id number] 05/19/2017 11:31:00 05/19/2017 23:59: 00 DIS Outpatient PaoniAriel [id number] 05/19/2017 10:54:00 05/19/2017 11:50: 00 DIS Outpatient Paoni, Ariel [id number] 03/26/2017 10:30:00 03/26/2017 23:59: 00 DIS Outpatient Paoni, Ariel [id number] 03/12/2017 08:45:00 03/12/2017 23:59: 00 DIS Outpatient PaoniAriel [id number] 02/06/2017 18:01:00 02/06/2017 23:59: 00 DIS Outpatient BrokobBeth [id number] 01/21/2017 09:44:00 01/21/2017 23:59: 00 DIS Outpatient PaoniAriel [id number] 09/02/2016 12:45:00 09/02/2016 23:59: 00 DIS Outpatient Paoni, Ariel [id number] 08/30/2016 10:17:00 08/30/2016 12:35: 00 DIS Outpatient BrokobBeth [id number] 08/29/2016 10:58:00 08/29/2016 23:59: 00 DIS Outpatient PaoniAriel [id number] 08/28/2016 15:12:00 08/28/2016 23:59: 00 DIS Outpatient BrokobBeth [id number] 07/29/2016 08:48:00 07/29/2016 23:59: 00 DIS Outpatient PaoniAriel [id number] 04/25/2016 14:46:00 04/25/2016 23:59: 00 DIS Outpatient BrokobBeth [id number] 08/03/2018 09:25:00 Document Registration [id number] 07/12/2018 10:17:00 Document Registration [id number] 04/29/2018 09:00:00 Document Registration [id number] 02/02/2018 08:29:00 Document Registration [id number] 06/03/2017 13:07:00 Document Registration [id number] 05/28/2017 08:52:00 Document Registration [id number] 05/19/2017 09:32:00 Document Registration [id number] 02/06/2017 13:49:00 Document Registration [id number] 08/30/2016 10:36:26 Document Registration [id number] 11/14/2019 05:39:00 020 11:28:00 DIS Outpatient AUDREY BEGUM MD [facility] PREOP MIXED INCONTINENCE [id number] 09/10/2016 05:58:00 017 09:35:00 DIS Outpatient AUDREY BEGUM MD [facility] INCONTINENCE, OVERACTIV E BLADDER, ISD [id number] 09/05/2016 05:33:00 017 23:59:59 CLS Outpatient AUDREY BEGUM MD [facility] PREOP INCONTINENCE, OVERACTIV E BLADDER, ISD [id number] 08/19/2016 05:32:00 017 12:46:00 DIS Outpatient AUDREY BEGUM MD [facility] PREOP INCONTINENCE, OVERACTIV E BLADDER, ISD [id number] 06/16/2012 14:45:00 Document Registration
[2019-11-16] MEDS ORDERED: cefTRIAXone 1,000 MG IV (ROCEPHIN) VIAL ONE (07:05)
[2019-11-16] MEDS ORDERED: WATER (STERILE) FOR INJECTION 10 ML ONE (07:06)
--- NOTE | 2019-11-16 07:11 | Progress Note-Pre Operative ---
Pre-Operative Progress Note H&P Reviewed The H&P was reviewed, patient examined and no changes noted. Date Seen by Provider: Nov 16, 2019 Time Seen by Provider: 07:10 Date H&P Reviewed: Nov 16, 2019 Time H&P Reviewed: 07:11 Pre-Operative Diagnosis: INCONTINENCE AND ISD AUDREY BEGUM MD Nov 16, 2019 07:11
[2019-11-16] MEDS ORDERED: cefTRIAXone FOR IV USE 1,000 MG in WATER (STERILE) FOR INJECTION 10 ML IV ONE (07:15)
--- NOTE | 2019-11-16 07:16 | Progress Note-Post Operative ---
Post-Operative Progess Note Surgeon (s)/Mall Manager (s) Surgeon AUDREY BEGUM MD Mall Manager: NONE Pre-Operative Diagnosis INCONTINENCE AND ISD Post-Operative Diagnosis SAME Procedure & Operative Findings Date of Procedure 11/16/19 Procedure Performed/Findings MACROPLASTIQUE IMPLANT Anesthesia Type GENERAL Estimated Blood Loss Estimated blood loss (mL): NEGLIGIBLE Specimens/Packing Specimens Removed NONE Packing: NONE AUDREY BEGUM MD Nov 16, 2019 07:16
--- NOTE | 2019-11-16 07:17 | Discharge Inst-Urology ---
Discharge Inst-Urology Reconcile Patient Problems Problems Reviewed?: Yes Final Diagnosis INCONTINENCE AND ISD Patient Instructions/Follow Up Plan/Assessment/Instructions Please make appointment to been seen in office in 4 weeks. Increase oral fluids for 48 hours and then as needed. Diet and Activity as tolerated. If questions or concerns contact your physician Or seek help at emergency department. AUDREY BEGUM MD Nov 16, 2019 07:17
[2019-11-16] MEDS ORDERED: LACTATED RINGERS 1,000 ML IV PRN (07:24)
[2019-11-16] MEDS ORDERED: proPOfol 200 MG/20 ML (DIPRIVAN) VIAL IV ONE (07:56)
[2019-11-16] MEDS ORDERED: LIDOCAINE PF 2% 5 ML (XYLOCAINE) VIAL ONE (07:56)
[2019-11-16] MEDS ORDERED: MIDAZOLAM 2 MG/2 ML (VERSED) VIAL ONE (07:56)
[2019-11-16] MEDS ORDERED: ONDANSETRON 4 MG/2 ML (SDV) Z0FRAN ONE (07:56)
[2019-11-16] MEDS ORDERED: fentaNYL INJECTION 100 MCG/2 ML AMP ONE (07:56)
[2019-11-16] MEDS ORDERED: SEVOFLURANE (ULTANE) 15 ML INHAL SOLN ONE ×2 (08:02→08:45)
[2019-11-16] MEDS ORDERED: ONDANSETRON 4 MG/2 ML (SDV) Z0FRAN IVP PRN (08:45)
[2019-11-16] MEDS ORDERED: HYDROmorphone 2 MG/ML VIAL (DILAUDID) IV ONE (08:45)
[2019-11-16] MEDS ORDERED: PHEN-640 PO (09:14)
[2019-11-16] MEDS ORDERED: CIPR-225 PO (09:16)
[2019-11-16] MEDS ORDERED: PHENAZOPYRIDINE 100 MG (PYRIDIUM) TABLET ONE (09:44)
[2019-11-16] MEDS ORDERED: PHENAZOPYRIDINE 100 MG (PYRIDIUM) TABLET PO ONE (10:00)
--- NOTE | 2019-11-16 12:57 | OPERATIVE REPORT ---
DATE OF SERVICE: 11/16/2019 PREOPERATIVE DIAGNOSIS: Urinary incontinence with intrinsic sphincter deficiency. POSTOPERATIVE DIAGNOSIS: Urinary incontinence with intrinsic sphincter deficiency. OPERATION PERFORMED: Macroplastique implant. SURGEON: Edward Begum MD. ANESTHESIA: General. COMPLICATIONS: None. DESCRIPTION OF PROCEDURE: Under satisfactory general anesthesia, the patient in lithotomy position, genitalia were prepped and draped in the usual sterile fashion. Cystoscope was introduced in the bladder and then a full syringe of Macroplastique was injected with the special technique in the 6 o'clock position at the mid urethra. There was very good elevation of the mid urethral area. Then, I injected half a syringe in each of the 2 and 10 o'clock position, again with good results. There was very good coaptation of the mid urethra. I left the bladder pretty full and to perform a Valsalva maneuver manually after removing the cystoscope and it was negative. I reinserted the scope to empty the bladder. Estimated blood loss was negligible. The patient tolerated the procedure and anesthesia well and was sent to recovery room in a stable condition. Job ID: [id number] DocumentID: [id number] Dictated Date: 11/16/2019 08:43:30 Insurance Processing Clerk Date: 11/16/2019 12:56:44 Dictated By: EDWARD BEGUM MD
--- NOTE | 2019-11-16 14:43 | Anesthesia-General Post-Op ---
General Patient Condition Mental Status/LOC: Same as Preop Cardiovascular: Satisfactory Nausea/Vomiting: Absent Respiratory: Satisfactory Pain: Controlled Complications: Absent Post Op Complications Complications None Follow Up Care/Instructions Patient Instructions None needed. Anesthesia/Patient Condition Patient Condition Patient is doing well, no complaints, stable vital signs, no apparent adverse anesthesia problems. No complications reported per nursing. D/C home per [facility] Criteria: Yes HA YOON CRNA Nov 16, 2019 14:43
== END 2019-11-16 10:47 | disposition home or self-care (01) ==
LOC: SDC 06:30
PROVIDERS: ATTEND Urology
DX: N39.46 Mixed incontinence (principal); N36.42 Intrinsic sphincter deficiency (ISD); N32.81 Overactive bladder; F32.9 Major depressive disorder, single episode, unspecified; E11.9 Type 2 diabetes mellitus without complications; J45.909 Unspecified asthma, uncomplicated; F03.90 Unspecified dementia, unspecified severity, without behavioral disturbance, psychotic disturbance, mood disturbance, and anxiety; Z90.710 Acquired absence of both cervix and uterus; Z79.899 Other long term (current) drug therapy; Z88.5 Allergy status to narcotic agent; Z88.2 Allergy status to sulfonamides; Z88.0 Allergy status to penicillin; Z88.1 Allergy status to other antibiotic agents
CPT/HCPCS: 51715; 82962; 87081; L8603

== ENCOUNTER 2020-03-06 05:33 | Outpatient (RCR) | payer MEDICARE, MEDICAID ==
[~2020-03-06] VITALS: Ht 154 cm; Wt 72.7 kg
[~2020-03-06 05:33] MED LIST changes: +AMLO-250 PO; -AMLO5TAB9 PO; +CIPR-225 PO; +NFBIOT1000 PO
== END 2020-03-06 10:15 | disposition home or self-care (01) ==
LOC: PREOP 05:33
PROVIDERS: ATTEND Surgery
DX: Z01.812 Encounter for preprocedural laboratory examination (principal); Z20.828 Contact with and (suspected) exposure to other viral communicable diseases
CPT/HCPCS: 87635

== ENCOUNTER 2020-03-08 11:27 | Day surgery (SDC) | payer MEDICARE, MEDICAID ==
[2020-03-08] VITALS (8 sets, daily range): BP systolic 101–141; BP diastolic 58–82
[~2020-03-08] VITALS: Ht 154 cm; Wt 72.7 kg
[2020-03-08] MEDS ORDERED: HURRICAINE EXT TUBE (BENZOCAINE) XX PRN (11:45)
[2020-03-08] MEDS ORDERED: LACTATED RINGERS 1,000 ML IV PRN (11:45)
[2020-03-08] MEDS ORDERED: LACTATED RINGERS 1,000 ML IV ONE (11:48)
[2020-03-08] MEDS ORDERED: PROPOFOL INJECTION 50 ML IV ONE (12:26)
[2020-03-08] MEDS ORDERED: MIDAZOLAM 2 MG/2 ML (VERSED) VIAL ONE (12:26)
--- NOTE | 2020-03-08 14:40 | Progress Note-Pre Operative ---
Pre-Operative Progress Note H&P Reviewed The H&P was reviewed, patient examined and no changes noted. Date Seen by Provider: Mar 08, 2020 Time Seen by Provider: 13:40 Date H&P Reviewed: Mar 08, 2020 Time H&P Reviewed: 13:40 Pre-Operative Diagnosis: blood in stool ROEL AGUILA DO Mar 08, 2020 14:40
--- NOTE | 2020-03-08 14:41 | Progress Note-Post Operative ---
Post-Operative Progess Note Surgeon (s)/Grapple Operator (s) Surgeon ROEL AGUILA DO Grapple Operator: na Pre-Operative Diagnosis blood in stool Post-Operative Diagnosis reflux esophagitis, normal colon Procedure & Operative Findings Date of Procedure 03/08/20 Procedure Performed/Findings egd c biopsies, colonoscopy Anesthesia Type per director fundraising Estimated Blood Loss Estimated blood loss (mL): none Specimens/Packing Specimens Removed antrum, ge ROEL AGUILA DO Mar 08, 2020 14:41
[2020-03-08] MEDS ORDERED: PANT40TA2 PO (14:42)
--- NOTE | 2020-03-08 14:43 | Discharge Inst-Simple/Standard ---
Discharge Inst-Standard Discharge Medications New, Converted or Re-Newed RX: Transmitted to Pharmacy Patient Instructions/Follow Up Plan of Care/Instructions/FU: 2 weeks cruzito Activity as Tolerated: Yes Discharge Diet: Regular Diet ROEL AGUILA DO Mar 08, 2020 14:43
--- NOTE | 2020-03-08 14:54 | Anesthesia-General Post-Op ---
MAC Patient Condition Mental Status/LOC: Same as Preop Cardiovascular: Satisfactory Nausea/Vomiting: Absent Respiratory: Satisfactory Pain: Controlled Complications: Absent Post Op Complications Complications None Follow Up Care/Instructions Patient Instructions None needed. Anesthesiology Discharge Order Discharge Order Patient is doing well, no complaints, stable vital signs, no apparent adverse anesthesia problems. No complications reported per nursing. STEPHEN WELLS CRNA Mar 08, 2020 14:54
--- NOTE | 2020-03-08 22:09 | OPERATIVE REPORT ---
DATE OF SERVICE: 03/08/2020 PREOPERATIVE DIAGNOSIS: Blood in stool. POSTOPERATIVE DIAGNOSES: Reflux esophagitis, normal colon. PROCEDURE: EGD with biopsies, colonoscopy. SURGEON: Roel Navarrete DO ANESTHESIA: Per PERCH MACHINE INSPECTOR. ESTIMATED BLOOD LOSS: None. COMPLICATIONS: None. INDICATIONS: The patient is a 79-year-old female, who had some blood in her stools. She was recommended to have EGD and colonoscopy for reevaluation. She understands risks and benefits of procedures and wished to proceed with procedure. Consent was signed in the chart. DESCRIPTION OF PROCEDURE: The patient was taken to the endoscopy suite, placed in left lateral recumbent position. Timeout was performed. Scope was inserted in mouth, down the esophagus, stomach and into the duodenum without difficulty. There were no polyps, masses or ulcerations. Scope was then slowly retracted back into the stomach where it was further insufflated. No polyps, masses or ulcerations. Biopsy of the antrum was obtained. Scope was retroflexed noting no other pathology. Scope was returned to its normal position, slowly withdrawn to distal esophagus. Some slight erythematous changes consistent with reflux esophagitis present. Biopsy was obtained. Scope was then slowly retracted back to completely remove noting no other pathology. Digital rectal exam was performed. There were no palpable polyps, masses or ulcerations. Scope was inserted in the rectum and advanced all the way to the cecum with minimal difficulty. Prep was adequate with irrigation and suction. Scope was then slowly retracted back. There were no polyps, masses or ulcerations within the cecum, ascending, transverse, descending and sigmoid colon. Once in the rectum, scope was retroflexed noting no other pathology. Scope was returned to its normal position, slowly withdrawn until completely removed. The patient tolerated procedure well without any complications. She was taken to recovery room in stable condition. RECOMMENDATIONS: The patient will be started on Protonix 40 mg daily to see if any improvement. The patient will need repeat colonoscopy on a p.r.n. basis. The patient will follow up in two to three weeks. Job ID: [id number] DocumentID: [id number] Dictated Date: 03/08/2020 14:45:21 Animal Care Supervisor Date: 03/08/2020 22:08:43 Dictated By: ROEL NAVARRETE DO
== END 2020-03-08 15:14 | disposition home or self-care (01) ==
LOC: ENDO 11:27
PROVIDERS: ATTEND Surgery
DX: K21.00 Gastro-esophageal reflux disease with esophagitis, without bleeding (principal); K92.1 Melena; K29.50 Unspecified chronic gastritis without bleeding; I10 Essential (primary) hypertension; E78.5 Hyperlipidemia, unspecified; J45.909 Unspecified asthma, uncomplicated; E66.9 Obesity, unspecified; Z68.30 Body mass index [BMI] 30.0-30.9, adult; Z79.899 Other long term (current) drug therapy; Z88.0 Allergy status to penicillin; Z88.2 Allergy status to sulfonamides; Z88.5 Allergy status to narcotic agent
CPT/HCPCS: 88305

== ENCOUNTER → 2021-09-26 | Outpatient (CLI) | payer MEDICARE, MEDICAID ==
[~2021-09-26] MED LIST changes: +CHOL-34 PO; -CHOL10002 PO; -GEMF600T8 PO; +GEMF600T88 PO; -LISI10TA2 PO; +LISI10TA25 PO; +PANT40TA2 PO
== END ==
LOC: RAD 13:42
PROVIDERS: ATTEND Nurse Practitioner
DX: Z53.9 Procedure and treatment not carried out, unspecified reason (principal)

== ENCOUNTER 2021-11-25 17:03 | Emergency (ER) | payer MEDICARE, MEDICAID ==
[~2021-11-25] VITALS: Ht 160 cm; Wt 74.0 kg
--- NOTE | 2021-11-25 17:09 | ED General ---
General Chief Complaint: COVID19 Suspect/Confirmed Stated Complaint: COVID, N/V/D Source of Information: Patient Exam Limitations: No Limitations (LISSETTE GUADALUPE APRN) History of Present Illness Date Seen by Provider: Nov 25, 2021 Time Seen by Provider: 17:07 Initial Comments To ER by EMS from home with reports of nausea vomiting diarrhea for 48 hours. She has also had a cough for the same duration. This began Thursday. She is unvaccinated against COVID. She was seen at [facility] diagnosed with urinary tract infection, "bronchial infection" tested positive for COVID and given a prescription for Augmentin. She felt worse after starting the Augmentin and thinks she might be allergic to it. EMS started an IV and gave a bag of fluids in route to the hospital which is still infusing currently. She also got Zofran 4 mg. Timing/Duration: 1-2 Days Severity: Moderate Associated Systoms: Cough; No Fever/Chills; Nausea/Vomiting (LISSETTE GUADALUPE APRN) Allergies and Home Medications Allergies Coded Allergies: Penicillins (Verified Allergy, Mild, Rash, 03/01/20) nitrofurantoin (Verified Allergy, Unknown, 03/01/20) Sulfa (Sulfonamide Antibiotics) (Verified Adverse Reaction, Intermediate, CONFUSION, 03/01/20) codeine (Verified Adverse Reaction, Intermediate, CONFUSION, 03/01/20) Patient Home Medication List Home Medication List Reviewed: Yes (LISSETTE GUADALUPE APRN) Biotin (Biotin) 1,000 Mcg Tablet, 1,000 MCG PO DAILY, (Reported) Entered as Reported by: MELISSA CA on 03/01/20 1137 Calcium Carbonate/Vitamin D3 (Calcium 600 + Vit D3 Tablet) 1 Each Tablet, 1 EACH PO DAILY, (Reported) Entered as Reported by: RICHY BAUMAN on 11/14/19 1127 Cefuroxime Axetil (Cefuroxime) 250 Mg Tablet, 250 MG PO BID Prescribed by: LISSETTE GUADALUPE on 11/25/21 1729 Donepezil HCl (Donepezil HCl) 5 Mg Tablet, 5 MG PO HS, (Reported) Entered as Reported by: RICHY BAUMAN on 11/14/19 1127 Gemfibrozil (Gemfibrozil) 600 Mg Tablet, 600 MG PO BID, (Reported) Entered as Reported by: RICHY BAUMAN on 11/14/19 1127 Hydrochlorothiazide (Hydrochlorothiazide) 25 Mg Tablet, 25 MG PO DAILY, (Reported) Entered as Reported by: MELISSA CA on 08/19/16 1218 Loratadine (Loratadine) 10 Mg Tablet, 10 MG PO DAILY, (Reported) Entered as Reported by: MELISSA CA on 08/19/16 1219 Molnupiravir (Molnupiravir (Eua)) 200 Mg Capsule, 800 MG PO BID Prescribed by: LISSETTE GUADALUPE on 11/25/21 1729 [place]-3/Dha/Epa/Fish Oil (Fish Oil 1,000 mg Softgel) 1,000 Mg Capsule, 1,000 MG PO DAILY, (Reported) Entered as Reported by: RICHY BAUMAN on 11/14/19 1127 Ondansetron (Ondansetron Odt) 8 Mg Tab.rapdis, 8 MG PO Q6H PRN for NAUSEA/VOMITING Prescribed by: LISSETTE GUADALUPE on 11/25/21 1729 Pantoprazole Sodium (Protonix) 40 Mg Tablet.dr, 40 MG PO DAILY Prescribed by: ROEL AGUILA on 03/08/20 1442 Paroxetine HCl (Paroxetine HCl) 40 Mg Tablet, 40 MG PO DAILY, (Reported) Entered as Reported by: RICHY BAUMAN on 11/14/19 112 Psyllium Husk (Daily Fiber) Unknown Strength Capsule, 1 TAB PO BID, (Reported) Entered as Reported by: RICHY BAUMAN on 11/14/19 1127 Review of Systems Review of Systems Constitutional: see HPI EENTM: see HPI Respiratory: see HPI, cough Cardiovascular: no symptoms reported Gastrointestinal: diarrhea, nausea, vomiting Genitourinary: no symptoms reported Musculoskeletal: no symptoms reported Skin: no symptoms reported Psychiatric/Neurological: No Symptoms Reported Hematologic/Lymphatic: No Symptoms Reported Immunological/Allergic: no symptoms reported (LISSETTE GUADALUPE APRN) Past Jbcjpiy-Dskqov-Dmfztw Hx Seasonal Allergies Seasonal Allergies: Yes (LISSETTE GUADALUPE APRN) Past Medical History Surgeries: Yes (macroplastique, D&C, hemorrhoid) Hysterectomy Respiratory: Yes Asthma Cardiac: Yes High Cholesterol, Hypertension Neurological: No Dementia Reproductive Disorders: No Sexually Transmitted Disease: No HIV/AIDS: No Genitourinary: Yes (ISD, OAB, mixed incontinence) Kidney Infection Gastrointestinal: Yes Chronic Constipation Musculoskeletal: No Endocrine: 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 0.0oz. 73.601779up; 30.65 BMI Method: General Appearance: No Apparent Distress, WD/WN, Other (Anxious appearing. Oxygen saturation 97% room air. No tachypnea. Heart rate 68. Blood pressure 145/62.) Eyes: Bilateral Eye Normal Inspection, Bilateral Eye PERRL, Bilateral Eye EOMI HEENT: PERRL/EOMI, TMs Normal Neck: Full Range of Motion, Normal Inspection Respiratory: No Accessory Muscle Use, No Respiratory Distress Cardiovascular: Regular Rate, Rhythm, Normal Peripheral Pulses Gastrointestinal: Normal Bowel Sounds, Non Tender, Soft Extremity: Normal Capillary Refill, Normal Inspection Neurologic/Psychiatric: Alert, Oriented x3 Skin: Normal Color, Warm/Dry (LISSETTE GUADALUPE APRN) Progress/Results/Core Measures Suspected Sepsis SIRS Temperature: Pulse: Respiratory Rate: Laboratory Tests 11/25/21 17:20: Blood Pressure / Mean: Laboratory Tests 11/25/21 17:20: (LISSETTE GUADALUPE APRN) Results/Orders Lab Results Laboratory Tests Test 11/25/21 17:20 Range/Units White Blood Count 5.1 4.3-11.0 10^3/uL Red Blood Count 4.21 3.80-5.11 10^6/uL Hemoglobin 11.6 11.5-16.0 g/dL Hematocrit 37 35-52 % Mean Corpuscular Volume 88 80-99 fL Mean Corpuscular Hemoglobin 28 25-34 pg Mean Corpuscular Hemoglobin Concent 31 L 32-36 g/dL Red Cell Distribution Width 14.4 10.0-14.5 % Platelet Count 104 L 130-400 10^3/uL Mean Platelet Volume 10.9 9.0-12.2 fL Immature Granulocyte % (Auto) 0 % Neutrophils (%) (Auto) 73 42-75 % Lymphocytes (%) (Auto) 14 12-44 % Monocytes (%) (Auto) 10 0-12 % Eosinophils (%) (Auto) 2 0-10 % Basophils (%) (Auto) 0 0-10 % Neutrophils # (Auto) 3.7 1.8-7.8 10^3/uL Lymphocytes # (Auto) 0.7 L 1.0-4.0 10^3/uL Monocytes # (Auto) 0.5 0.0-1.0 10^3/uL Eosinophils # (Auto) 0.1 0.0-0.3 10^3/uL Basophils # (Auto) 0.0 0.0-0.1 10^3/uL Immature Granulocyte # (Auto) 0.0 0.0-0.1 10^3/uL Percent Immature Platelet Fraction 3.9 0.0-7.6 % Sodium Level 141 135-145 MMOL/L Potassium Level 3.8 3.6-5.0 MMOL/L Chloride Level 109 H 98-107 MMOL/L Carbon Dioxide Level 18 L 21-32 MMOL/L Anion Gap 14 5-14 MMOL/L Blood Urea Nitrogen 18 7-18 MG/DL Creatinine 1.34 H 0.60-1.30 MG/DL Estimat Glomerular Filtration Rate 40 BUN/Creatinine Ratio 13 Glucose Level 95 70-105 MG/DL Calcium Level 8.5 8.5-10.1 MG/DL Corrected Calcium 8.5 8.5-10.1 MG/DL Total Bilirubin 0.3 0.1-1.0 MG/DL Aspartate Amino Transf (AST/SGOT) 30 5-34 U/L Alanine Aminotransferase (ALT/SGPT) 25 0-55 U/L Alkaline Phosphatase 45 40-136 U/L Total Protein 6.8 6.4-8.2 GM/DL Albumin 4.0 3.2-4.5 GM/DL (PAULINO GRADY MD) Vital Signs/I&O 11/25/21 11/25/21 17:03 18:19 Temp 36.3 Pulse 63 74 Resp 16 16 B/P (MAP) 145/62 (89) 160/73 Pulse Ox 98 97 O2 Delivery Room Air Room Air (PAULINO GRADY MD) Vital Signs/I&O Capillary Refill : (LISSETTE GUADALUPE APRN) Departure Communication (Admissions) NAME: GEOVANNY JAUREGUI I [facility] REC#: [id number] PT STATUS: REG ER : 1940 PHYSICIAN: LISSETTE GUADALUPE APRN ADMIT DATE: 11/25/21/ER Draft Date of Exam:11/25/21 CHEST 1 VIEW, AP/PA ONLY INDICATION: COVID positive patient with cough. FINDINGS: The right diaphragm is elevated. Lungs themselves, however, are free of acute consolidation. There are old healed left rib deformities in the upper chest. Hilar and mediastinal contours are unremarkable. No overt failure pattern, effusion, or pneumothorax. IMPRESSION: Chronic bony changes and an elevated right diaphragm, no acute cardiopulmonary or pleural pathology apparent. Dictated on workstation # [id number] Dict: 11/25/21 1718 Trans: 11/25/21 1723 [id number] Interpreted by: HOLLY TAM Electronically signed by: (LISSETTE GUADALUPE APRN) Impression Primary Impression: COVID-19 Disposition: 01 HOME, SELF-CARE Condition: Stable Departure-Patient Inst. Decision time for Depature: 17:27 (LISSETTE GUADALUPE APRN) Referrals: SEBASTIÁN CHAO DO (PCP) Primary Care Physician Patient Instructions: Molnupiravir FDA Fact Sheet Add. Discharge Instructions: 1. You can use [id number] Imodium for diarrhea. Stop the Augmentin antibiotic given today and start the new antibiotic called Ceftin. Take the monoclonal antibody for COVID called molnupiravir All discharge instructions reviewed with patient and/or family. Voiced understanding. Scripts Cefuroxime Axetil (Cefuroxime) 250 Mg Tablet 250 MG PO BID, #10 TAB Prov: LISSETTE GUADALUPE APRN 11/25/21 Molnupiravir (Molnupiravir (Eua)) 200 Mg Capsule 800 MG PO BID for 5 Days, #40 CAP Prov: LISSETTE GUADALUPE APRN 11/25/21 Ondansetron (Ondansetron Odt) 8 Mg Tab.rapdis 8 MG PO Q6H PRN for NAUSEA/VOMITING, #14 TAB Prov: LISSETTE GUADALUPE APRN 11/25/21 ATTENDING PHYSICIAN NOTE: I was physically present as attending physician in the emergency department during the care of this patient, but I was not directly involved in the decision making or delivery of care for this patient. (PAULINO GRADY MD) LISSETTE GUADALUPE APRN Nov 25, 2021 17:09 PAULINO GRADY MD Nov 27, 2021 07:09
[2021-11-25] MEDS ORDERED: LOPERAMIDE 2 MG (IMODIUM) TABLET PO ONE (17:15)
[2021-11-25] MEDS ORDERED: ONDANSETRON 4 MG/2 ML (SDV) Z0FRAN IVP ONE (17:15)
--- NOTE | 2021-11-25 17:24 | Diagnostic Imaging Report ---
INDICATION: COVID positive patient with cough. FINDINGS: The right diaphragm is elevated. Lungs themselves, however, are free of acute consolidation. There are old healed left rib deformities in the upper chest. Hilar and mediastinal contours are unremarkable. No overt failure pattern, effusion, or pneumothorax. IMPRESSION: Chronic bony changes and an elevated right diaphragm, no acute cardiopulmonary or pleural pathology apparent. Dictated by: Dictated on workstation # [id number]
[2021-11-25] MEDS ORDERED: MOLN200C PO (17:29)
[2021-11-25] MEDS ORDERED: ONDA8TAB13 PO (17:29)
[2021-11-25] MEDS ORDERED: CEFU250T80 PO (17:29)
[2021-11-25 17:34] LABS: BASOPHILS % (AUTO) 0 % (0-10); EOSINOPHILS # (AUTO) 0.1 10^3/uL (0.0-0.3); MEAN PLATELET VOLUME 10.9 fL (9.0-12.2)
[2021-11-25 17:36] LABS: EOSINOPHILS % (AUTO) 2 % (0-10); HEMATOCRIT 37 % (35-52); HEMOGLOBIN 11.6 g/dL (11.5-16.0); LYMPHOCYTES # (AUTO) 0.7 10^3/uL (1.0-4.0); LYMPHOCYTES % (AUTO) 14 % (12-44); MEAN CORPUSCULAR HEMOGLOBIN 28 pg (25-34); MEAN CORPUSCULAR HGB CONC 31 g/dL (32-36); MEAN CORPUSCULAR VOLUME 88 fL (80-99); MONOCYTES # (AUTO) 0.5 10^3/uL (0.0-1.0); MONOCYTES % (AUTO) 10 % (0-12); NEUTROPHILS # (AUTO) 3.7 10^3/uL (1.8-7.8); NEUTROPHILS % (AUTO) 73 % (42-75); PLATELET COUNT 104 10^3/uL (130-400); WHITE BLOOD COUNT 5.1 10^3/uL (4.3-11.0)
[2021-11-25 17:45] LABS: POTASSIUM 3.8 MMOL/L (3.6-5.0)
[2021-11-25 17:47] LABS: CALCIUM 8.5 MG/DL (8.5-10.1)
[2021-11-25 17:48] LABS: TOTAL PROTEIN 6.8 GM/DL (6.4-8.2)
[2021-11-25 17:50] LABS: BILIRUBIN,TOTAL 0.3 MG/DL (0.1-1.0)
[2021-11-25 17:51] LABS: CREATININE SERUM 1.34 MG/DL (0.60-1.30)
[2021-11-25 18:19] VITALS: BP 160/73
== END 2021-11-25 18:19 | disposition home or self-care (01) ==
LOC: ER 17:03 → EDUNIT# 17:03 → ER 18:19
DX: U07.1 COVID-19 (principal); F39 Unspecified mood [affective] disorder; Z73.0 Burn-out; Z79.899 Other long term (current) drug therapy; Z88.0 Allergy status to penicillin; Z88.1 Allergy status to other antibiotic agents; Z88.2 Allergy status to sulfonamides; Z28.310 Unvaccinated for COVID-19
CPT/HCPCS: 36415; 71045; 80053; 85025; 99283

== ENCOUNTER → 2021-12-27 | Outpatient (CLI) | payer MEDICARE, MEDICAID ==
[~2021-12-27] MED LIST changes: +CEFU250T80 PO; +MOLN200C PO; +ONDA8TAB13 PO
--- NOTE | 2021-12-27 13:44 | Diagnostic Imaging Report ---
PROCEDURE: US Renal Bilateral. TECHNIQUE: Multiple real-time grayscale images were obtained over the kidneys in various projections bilaterally. INDICATION: Renal failure. FINDINGS: Right kidney measures 8.1 x 4.6 x 4.8 cm, and left kidney measures 8.2 x 4.4 x 4.8 cm. Cortical thickness and echogenicity are normal. No calculi are seen. There is no hydronephrosis. Pre-void bladder volume is 100 mL. Post-void volume is 24 mL. Bilateral ureteral jets were visualized. IMPRESSION: Unremarkable renal ultrasound. Dictated by: Dictated on workstation # [id number]
== END ==
LOC: RAD 11:56
PROVIDERS: ATTEND Internal Medicine Nephrology
DX: N18.31 Chronic kidney disease, stage 3a (principal); N39.0 Urinary tract infection, site not specified
CPT/HCPCS: 76770